=== PATIENT | female | born 1955 | race Caucasian/White ===

== ENCOUNTER 2016-08-23 11:04 | Observation (INO) | payer OTHER ==
[~2016-08-23] VITALS: Ht 154.9 cm; Wt 72.6 kg
[~2016-08-23 11:04] MED LIST: SINGULAIR10 MG PO
[2016-08-23 11:42] LABS: HEMOGLOBIN 15.1 gm/dl (12.3-15.3); RED BLOOD COUNT 4.71 M/UL (4.00-5.10)
[2016-08-23 12:01] LABS: BUN/CREATININE RATIO 13 (0-10)
[2016-08-24 06:04] LABS: HEMOGLOBIN 14.6 gm/dl (12.3-15.3); RED BLOOD COUNT 4.56 M/UL (4.00-5.10); WHITE BLOOD COUNT 14.5 K/UL (4.5-11.0)
[2016-08-24 06:10] LABS: BUN/CREATININE RATIO 18 (0-10)
[2016-08-24] MEDS ORDERED: ASPIRIN EC81 MG PO (12:12)
[2016-08-24] MEDS ORDERED: VITAMIN D 11000 UNIT PO (13:10)
[2016-08-24] MEDS ORDERED: HYDROCHLOROTH12.5 MG PO (13:10)
[2016-08-24] MEDS ORDERED: IPRAT-ALBUT 0.5-3 ML INH (13:11)
[2016-08-24] MEDS ORDERED: SPIRIVA RESPIMAT4 GM INH (13:12)
[2016-08-24] MEDS ORDERED: PROAIR HFA8.5 GM INH (13:13)
[2016-08-24] MEDS ORDERED: DULERA 200 MCG8.8 GM INH (13:13)
[2016-08-24] MEDS ORDERED: TOPROL XL100 MG PO (13:14)
== END 2016-08-24 14:09 | disposition home or self-care (01) ==
LOC: ER1 11:04 → M/S 13:23 → ZEROF 13:23 → M/S 20:35
PROVIDERS: Emergency Medicine; ADMIT Internal Medicine
DX: R07.9 Chest pain, unspecified (principal); I10 Essential (primary) hypertension; J44.9 Chronic obstructive pulmonary disease, unspecified; J45.909 Unspecified asthma, uncomplicated; R09.02 Hypoxemia; D72.829 Elevated white blood cell count, unspecified; R73.9 Hyperglycemia, unspecified; R91.8 Other nonspecific abnormal finding of lung field; Z79.899 Other long term (current) drug therapy; Z87.891 Personal history of nicotine dependence; Z88.6 Allergy status to analgesic agent; Z88.0 Allergy status to penicillin; Z99.81 Dependence on supplemental oxygen; Z98.1 Arthrodesis status; Z90.89 Acquired absence of other organs
CPT/HCPCS: 36415; 71010; 71020; 80048; 80053; 82550; 82553; 83690; 83735; 83874; 83880; 84484; 85025; 85610; 85730; 87040; 93005; 94640; 94664; 96374; 99285; G0378; J2930